=== PATIENT | female | born 1975 | race Caucasian/White ===

== ENCOUNTER → 2017-10-31 | Outpatient (CLI) | payer OTHER ==
[~2017-10-31] MED LIST: ACET325 PO; ALBU4 PO; ALBU90I INH; ALBU90OI INH; AMIT10; AZIT250 PO; Amoxicillin500 MG PO; BENZ100A PO; BUPR1 PO; BUTASPCAF PO; Bactrim Ds Tab1 EACH PO; CEPH500 PO; CITA20; CODACE30 PO; CYCL10 PO; DICL50ER; DILT120; DILT180; DIPH50 PO; DOCU100 PO; DOXY100 PO; ESOM20 PO; FAMO40 PO; HYDACE5; HYDACE5 PO; HYDACE5325; HYDGUAL120 PO; HYDR1TAB94 PO; IBUP600 PO; IBUP800 PO; IPRAOI INH; LASIX PO; LEVO750 PO; METO10; MULVITMINE; NAPR500 PO; NICO21TP TD; ONDA4 PO; OXYACE10 PO; OXYACE5T PO; PANT40 PO; PENVK500 PO; PRED10 PO; PROM25; PROM25 PO; PROP10; RIZA; RXOXYACE PO; RXTRAM50 PO; SOMA350 MG PO; SULTRIDS PO; SUMA25; TOPI100; TOPI25; TRAM50; TRAM50 PO; Verotin-Gr Cap1 EACH; ZOLM5; ZOMIG; [UNRECOGNIZED DRUG - OTHER]
== END ==
LOC: LAB SRC 13:16 → LAB SHORT 13:16
DX: R82.90 Unspecified abnormal findings in urine (principal)
CPT/HCPCS: 87077; 87086; 87186

== ENCOUNTER 2018-05-03 22:00 | Emergency (ER) | payer OTHER ==
[~2018-05-03] VITALS: Ht 167.6 cm; Wt 127.0 kg
[~2018-05-03 22:00] MED LIST changes: -Bactrim Ds Tab1 EACH PO
[2018-05-03 23:04] LABS: BASOPHILS ABSOLUTE AUTO 0.05 K/mm3 (0.00-0.23); BASOPHILS PERCENT AUTO 0 % (0-2); EOSINOPHILS ABSOLUTE AUTO 0.08 K/mm3 (0.00-0.68); EOSINOPHILS PERCENT AUTO 1 % (0-6); Hematocrit 45.8 % (33.0-51.0); Hemoglobin 15.9 g/dL (11.5-16.0); IMMATURE GRAN ABSOLUTE AUTO 0.05 K/mm3 (0.00-0.10); IMMATURE GRAN PERCENT AUTO 0 % (0-1); LYMPHOCYTES ABSOLUTE AUTO 2.51 K/mm3 (0.84-5.20); LYMPHOCYTES PERCENT AUTO 19 % (21-46); MONOCYTES ABSOLUTE AUTO 1.19 K/mm3 (0.16-1.47); MONOCYTES PERCENT AUTO 9 % (4-13); Mean Corpuscular HGB 30.9 pg (26.0-34.0); Mean Corpuscular HGB Conc 34.7 g/dL (31.5-36.5); Mean Corpuscular Volume 89 fL (80-100); NEUTROPHILS ABSOLUTE AUTO 9.36 K/mm3 (1.96-9.15); NEUTROPHILS PERCENT AUTO 71 % (41-73); RDW Coefficient Variation 12.5 % (11.7-14.2); RDW Standard Deviation 41.6 fL (35.1-46.3); Red Blood Cell Count 5.14 M/mm3 (3.80-5.20); White Blood Cell Count 13.24 K/mm3 (4.00-11.30)
[2018-05-03 23:10] LABS: Mean Platelet Volume 9.4 fL (9.1-12.4); Platelet Count 247 K/mm3 (150-400)
[2018-05-03 23:22] LABS: Alanine Aminotransfer (ALT/SGP 42 U/L (12-78); Albumin, Blood 3.5 g/dL (3.4-5.0); Albumin/Globulin Ratio 0.8 (0.8-1.8); Alk Phos 352 U/L (50-136); Anion Gap 8 mmol/L (6-16); Aspartate Aminotrans (AST/SGOT 33 U/L (12-37); Bilirubin, Total 0.3 mg/dL (0.1-1.0); Blood Urea Nitrogen 7 mg/dL (8-24); CO2, Blood 25 mmol/L (21-32); Calcium, Blood 8.6 mg/dL (8.5-10.1); Chloride, Blood 105 mmol/L (98-108); Creatinine, Blood 0.64 mg/dL (0.40-1.00); Globulin, Blood 4.2 g/dL (2.2-4.0); Glomerular Filtration Rate >60 (60-); Glucose, Blood 93 mg/dL (70-99); Potassium, Blood 4.2 mmol/L (3.5-5.5); Sodium, Blood 138 mmol/L (136-145); Total Protein, Blood 7.7 g/dL (6.4-8.2)
[2018-05-03] MEDS ORDERED: CEPH500 PO (23:24)
[2018-05-03] MEDS ORDERED: IBUP600 PO (23:24)
[2018-05-03] MEDS ORDERED: Bactrim Ds Tab1 EACH PO (23:24)
== END 2018-05-03 23:53 | disposition home or self-care (01) ==
LOC: ER 22:00
PROVIDERS: Emergency Medicine
DX: L03.113 Cellulitis of right upper limb (principal); F11.10 Opioid abuse, uncomplicated; F17.210 Nicotine dependence, cigarettes, uncomplicated; Z88.8 Allergy status to other drugs, medicaments and biological substances
CPT/HCPCS: 80053; 85025; 96374; 99283-25; J1885

== ENCOUNTER 2019-02-13 15:08 | Inpatient (IN) | payer OTHER ==
[~2019-02-13] VITALS: Ht 167.6 cm; Wt 112.0 kg
[~2019-02-13 15:08] MED LIST changes: +Bactrim Ds Tab1 EACH PO
[2019-02-13 16:08] LABS: BASOPHILS ABSOLUTE AUTO 0.06 K/mm3 (0.00-0.23); BASOPHILS PERCENT AUTO 0 % (0-2); EOSINOPHILS ABSOLUTE AUTO 0.19 K/mm3 (0.00-0.68); EOSINOPHILS PERCENT AUTO 1 % (0-6); Hematocrit 45.6 % (33.0-51.0); Hemoglobin 15.4 g/dL (11.5-16.0); IMMATURE GRAN ABSOLUTE AUTO 0.06 K/mm3 (0.00-0.10); IMMATURE GRAN PERCENT AUTO 0 % (0-1); LYMPHOCYTES ABSOLUTE AUTO 3.15 K/mm3 (0.84-5.20); LYMPHOCYTES PERCENT AUTO 20 % (21-46); MONOCYTES ABSOLUTE AUTO 1.92 K/mm3 (0.16-1.47); MONOCYTES PERCENT AUTO 12 % (4-13); Mean Corpuscular HGB Conc 33.8 g/dL (31.5-36.5); Mean Corpuscular Volume 92 fL (80-100); Mean Platelet Volume 9.1 fL (9.1-12.4); NEUTROPHILS ABSOLUTE AUTO 10.46 K/mm3 (1.96-9.15); NEUTROPHILS PERCENT AUTO 66 % (41-73); Platelet Count 327 K/mm3 (150-400); RDW Coefficient Variation 12.8 % (11.7-14.2); RDW Standard Deviation 43.5 fL (35.1-46.3); Red Blood Cell Count 4.97 M/mm3 (3.80-5.20); White Blood Cell Count 15.84 K/mm3 (4.00-11.30)
[2019-02-13 16:22] LABS: Alanine Aminotransfer (ALT/SGP 96 U/L (12-78); Albumin, Blood 3.1 g/dL (3.4-5.0); Albumin/Globulin Ratio 0.7 (0.8-1.8); Alk Phos 367 U/L (50-136); Anion Gap 7 mmol/L (6-16); Aspartate Aminotrans (AST/SGOT 64 U/L (12-37); Bilirubin, Total 0.7 mg/dL (0.1-1.0); Blood Urea Nitrogen 5 mg/dL (8-24); Bun/Creatinine Ratio 8.5 (12.0-20.0); CO2, Blood 27 mmol/L (21-32); Calcium, Blood 8.9 mg/dL (8.5-10.1); Chloride, Blood 103 mmol/L (98-108); Creatinine, Blood 0.59 mg/dL (0.40-1.00); Globulin, Blood 4.6 g/dL (2.2-4.0); Glomerular Filtration Rate >60 (60-); Glucose, Blood 83 mg/dL (70-99); Potassium, Blood 3.3 mmol/L (3.5-5.5); Sodium, Blood 137 mmol/L (136-145); Total Protein, Blood 7.7 g/dL (6.4-8.2)
--- NOTE | 2019-02-14 05:08 | NUR ---
PATIENT JUST TRIED TO GO OUTSIDE TO SMOKE, FOUND BY ELEVATOR READY TO GO DOWNSTAIRS, SHE IS VERY ANCIOUS AND JITTERY, WITHDRAWLING FROM HER HERION AND METH USE ON ADMISSION, SOON WE GOT BACK TO ROOM SHE TEXTED SOMEONE ON HER PHONE. INFORMED HER THAT WE CAN NOT HAVE HER GO OUTSIDE TO SMOKE THAT LONG THE IV ARE IN SHE CAN NOT LEAVE. SHE COOPERATED TO GO BACK TO THE ROOM.
[2019-02-14 05:30] LABS: BASOPHILS ABSOLUTE AUTO 0.03 K/mm3 (0.00-0.23); BASOPHILS PERCENT AUTO 0 % (0-2); EOSINOPHILS ABSOLUTE AUTO 0.08 K/mm3 (0.00-0.68); EOSINOPHILS PERCENT AUTO 1 % (0-6); Hemoglobin 12.7 g/dL (11.5-16.0); IMMATURE GRAN ABSOLUTE AUTO 0.06 K/mm3 (0.00-0.10); IMMATURE GRAN PERCENT AUTO 1 % (0-1); LYMPHOCYTES ABSOLUTE AUTO 2.69 K/mm3 (0.84-5.20); LYMPHOCYTES PERCENT AUTO 23 % (21-46); MONOCYTES ABSOLUTE AUTO 1.14 K/mm3 (0.16-1.47); MONOCYTES PERCENT AUTO 10 % (4-13); Mean Corpuscular HGB 31.1 pg (26.0-34.0); Mean Corpuscular HGB Conc 33.4 g/dL (31.5-36.5); Mean Corpuscular Volume 93 fL (80-100); Mean Platelet Volume 9.6 fL (9.1-12.4); NEUTROPHILS ABSOLUTE AUTO 7.89 K/mm3 (1.96-9.15); NEUTROPHILS PERCENT AUTO 66 % (41-73); Platelet Count 268 K/mm3 (150-400); RDW Coefficient Variation 12.6 % (11.7-14.2); RDW Standard Deviation 43.7 fL (35.1-46.3); Red Blood Cell Count 4.08 M/mm3 (3.80-5.20); White Blood Cell Count 11.89 K/mm3 (4.00-11.30)
[2019-02-14 05:36] LABS: International Normalized Ratio 1.01; Prothrombin Time Results 10.7 Sec (9.7-11.5)
[2019-02-14 05:48] LABS: Alanine Aminotransfer (ALT/SGP 65 U/L (12-78); Albumin, Blood 2.5 g/dL (3.4-5.0); Albumin/Globulin Ratio 0.7 (0.8-1.8); Alk Phos 260 U/L (50-136); Anion Gap 6 mmol/L (6-16); Aspartate Aminotrans (AST/SGOT 43 U/L (12-37); Bilirubin, Total 0.7 mg/dL (0.1-1.0); Blood Urea Nitrogen 4 mg/dL (8-24); Bun/Creatinine Ratio 8.3 (12.0-20.0); CO2, Blood 24 mmol/L (21-32); Calcium, Blood 7.6 mg/dL (8.5-10.1); Chloride, Blood 112 mmol/L (98-108); Creatinine, Blood 0.48 mg/dL (0.40-1.00); Globulin, Blood 3.8 g/dL (2.2-4.0); Glomerular Filtration Rate >60 (60-); Glucose, Blood 121 mg/dL (70-99); Magnesium, Blood 1.7 mg/dL (1.6-2.4); Potassium, Blood 3.6 mmol/L (3.5-5.5); Sodium, Blood 142 mmol/L (136-145); Total Protein, Blood 6.3 g/dL (6.4-8.2)
--- NOTE | 2019-02-14 06:43 | NUR ---
SHIFT SUMMARY: PATIENT ARRIVED TO THE FLOOR FROM ER VIA WC. TRANSFERRED SELF TO BED. SHE WAS VERY ANXIOUS, BUT AOX3, FLAT EFFECT, AND WITHDRAWN. THEY STATE THAT SHE ACTED EMBARRED DOWN IN THE ER. PATIENT ADMITTED TO DAILY IV HERION USE UP TO 4-5 TIMES A DAY, AND METH USE FOR SUBSITUTE. LAST TIME USED WAS RIGHT BEFORE COMMING TO THE HOSPTIAL. SHE CAME IN DO TO WORSENING ABSCESS TO THE BILATERAL HANDS AND LEFT AC AREA. BILATERAL HANDS ARE SWOLLEN WITH CELLULITIS THE RIGHT HAS A TRACK TO THE SURFACE AND IS DRAINING, MILD SEROUS SANGUOUS. THE LEFT HAS NOT OPEN OF YET, THE LEFT AC HAS OPENED AND HAS A DEEP WHOLE AND DRAINING, SHE REFUSED TO HAVE THEM COVERED OR MEASURED THEY DID IT IN THE ER. SHE HAS DENIED PAIN BUT HAS SHOWN SIGNS OF WITHDRAWL WITH IN HOURS OF BEING HERE. SHE IS VERY ANXIOUS UP AND DOWN IN HER ROOM PACING THE FLOOR AND CONSTANTLY MOVING AROUND STATING THAT SHE FEELS SHE WILL LOSE IT, ATIVAN HAS BEEN GIVEN AFTER A CALL TO THE DOCTOR AND IT CHANGED TO EVERY 3 HOURS. SHE WAS FOUND LATER TRYING TO GO OUTSIDE TO SMOKE DISPITE THE NICOTINE PATCH SHE HAS ON. INFORMED HER SHE IS NOT TO LEAVE TILL WHILE THE IV IS IN PLACE. SHE WAS NOT HAPPY ABOUT THAT. ENCOURAGED HER TO TRY TO REST BUT SHE HAS NOT. SHE DID HAVE A VISIT FROM HER DAUGHTER AND SON, WHICH SON WAS YOUNG 5 YEARS OLD. THIS DID NOT HELP HER WANTING TO GO HOME. SO FAR SHE HAS REMAINED CALM AND HAS NOT ESCALATED TO BEHAVIORAL ISSUES. DR. RODRÍGUEZ WAS CONSULTED FOR POSSIBLE I&D. NO OTHER CHANGES HAVE OCCURED, WILL REPORT TO DAY SHIFT RN.
--- NOTE | 2019-02-14 18:15 | NUR ---
PT AOX3 WITH A LOT OF ANXIETY AND NERVOUSNESS RELATED TO DETOXING FROM DRUGS. PT IS TREATED WITH ATIVAN FOR ANXIETY. PT PACES IN ROOM AND IS DISCOURAGED TO LEAVE THE ROOM FOR SMOKING OUTSIDE. NICOTINE PATCH IN PLACE. PT HAS PAIN IN HER HANDS WITH BILATERAL CELLULITIS AND IS TREATED PER EMAR. PT IS AGITATED OFF AND ON, BUT SO FAR IS REDIRECTABLE. WILL CONTINUE TO MONITOR.
[2019-02-14 22:09] LABS: Vancomycin, Trough 8.3 ug/mL (5.0-10.0)
[2019-02-15 05:46] LABS: BASOPHILS ABSOLUTE AUTO 0.04 K/mm3 (0.00-0.23); BASOPHILS PERCENT AUTO 0 % (0-2); EOSINOPHILS ABSOLUTE AUTO 0.06 K/mm3 (0.00-0.68); EOSINOPHILS PERCENT AUTO 1 % (0-6); Hematocrit 41.4 % (33.0-51.0); Hemoglobin 13.8 g/dL (11.5-16.0); IMMATURE GRAN ABSOLUTE AUTO 0.04 K/mm3 (0.00-0.10); IMMATURE GRAN PERCENT AUTO 0 % (0-1); LYMPHOCYTES ABSOLUTE AUTO 2.63 K/mm3 (0.84-5.20); LYMPHOCYTES PERCENT AUTO 29 % (21-46); MONOCYTES ABSOLUTE AUTO 1.15 K/mm3 (0.16-1.47); MONOCYTES PERCENT AUTO 13 % (4-13); Mean Corpuscular HGB 30.5 pg (26.0-34.0); Mean Corpuscular HGB Conc 33.3 g/dL (31.5-36.5); Mean Corpuscular Volume 92 fL (80-100); Mean Platelet Volume 9.4 fL (9.1-12.4); NEUTROPHILS ABSOLUTE AUTO 5.19 K/mm3 (1.96-9.15); NEUTROPHILS PERCENT AUTO 57 % (41-73); Platelet Count 276 K/mm3 (150-400); RDW Coefficient Variation 12.5 % (11.7-14.2); RDW Standard Deviation 42.1 fL (35.1-46.3); Red Blood Cell Count 4.52 M/mm3 (3.80-5.20); White Blood Cell Count 9.11 K/mm3 (4.00-11.30)
[2019-02-15 06:07] LABS: Anion Gap 5 mmol/L (6-16); Blood Urea Nitrogen 6 mg/dL (8-24); CO2, Blood 24 mmol/L (21-32); Calcium, Blood 8.7 mg/dL (8.5-10.1); Chloride, Blood 112 mmol/L (98-108); Creatinine, Blood 0.55 mg/dL (0.40-1.00); Glomerular Filtration Rate >60 (60-); Glucose, Blood 101 mg/dL (70-99); Magnesium, Blood 2.1 mg/dL (1.6-2.4); Sodium, Blood 141 mmol/L (136-145)
--- NOTE | 2019-02-15 06:28 | NUR ---
SHIFT SUMMARY PT VERY FLAT AFFECT DOESN'T SEEM TO RESPOND TO QUESTIONS, KIND OF A CONSTANT BLANK STARE. NPO SINCE MIDNIGHT. SHE TENDS TO WANDER HALLS WITH GOWN OPEN IN BACK C BLANK STARE. REDIRECTED TO ROOM X3. SHE LAYED IN BED AND DOZED ON AND OFF, TOSSING IN BED ON AND OFF T/O NIGHT.
--- NOTE | 2019-02-15 09:41 | NUR ---
Ambulatory in ROOM, FLAT AFFECT, MINIMAL VERBAL, STANDS, TRANSFERS TO [facility], DENIES NEED TO VOID WHEN OFFERED, DECLINES. SIGNS BLOOD CONSENT. History, Chart, Medications and Allergies reviewed before start of procedure.Lungs clear T/O to Auscultation. Patient confirms NPO status and agrees with scheduled surgery. Pre-Op teaching done. Pt verbalizes understanding.
--- NOTE | 2019-02-15 13:05 | NUR ---
PT IS ANSWERING AND TALKING WITH RN. STATES THAT 25MCG IV FENT DID NOT "DO MUCH" TO PAIN. PT NOW ASKING TO SOMETHING TO DRINK AND WANTS TO GO BACK TO ROOM. REPORT WAS GIVEN TO KATHYA BERKOWITZ. PT IS STABLE AT THIS TIME TO BE TRANSFERED TO MEDICAL FLOOR.
--- NOTE | 2019-02-15 16:54 | NUR ---
PT IS AOX3 VERY FLAT AFFECT. PT IS STILL WITHDRAWING FROM HER DRUG USE. PT WAS OUT MOST OF THE DAY FOR IND TO HER L ELBOW AND BOTH HANDS. WOUND VAC ON L ELBOW IS RUNNING WELL AT THIS TIME AND HAND BANDAGES ARE CLEAN. PT TREATED FOR PAIN PER EMAR. PT IS A ONE PERSON RENAE AT THIS TIME SHE RECOVERS FROM SEDATATION AND GETS HELP WITH WOUND VAC AND IV LINES. VITALS ARE STABLE WILL CONTINUE TO MONITOR. PT DOES NOT USE CALL LIGHT. BED ALARM IN PLACE.
[2019-02-15 17:06] LABS: Source, Urine Clean Catch
[2019-02-15 17:08] LABS: Bilirubin, Urine Neg (Neg); Blood, Urine 3+ (Neg); Glucose Qualitative, Urine Neg (Neg); Ketones, Urine Neg (Neg); Leukocyte Esterase, Urine Neg (Neg); Nitrite, Urine Neg (Neg); Protein, Urine Neg (Neg); Urobilinogen, Urine NORM (Normal); pH, Urine 6.5 (5.0-8.0)
[2019-02-15 17:19] LABS: Appearance, Urine Clear (Clear); Color, Urine Pale Yellow (P-Yellow)
[2019-02-15 17:20] LABS: Red Blood Cells, Urine 0-2 /hpf (0-2); Squamous Epithelial Cells Few /hpf (Few); White Blood Cells, Urine 0-2 /hpf (0-5)
[2019-02-15 17:21] LABS: Bacteria Not Seen /hpf
[2019-02-16 00:06] LABS: HBSAG SCREEN Negative (Negative); HEP A AB, IGM Negative (Negative); HEP B CORE AB, IGM Negative (Negative); HEP B CORE AB, TOT Negative (Negative); HEP C VIRUS AB >11.0 (0.0-0.9)
[2019-02-16 04:59] LABS: Vancomycin, Trough 14.6 ug/mL (5.0-10.0)
--- NOTE | 2019-02-16 06:37 | NUR ---
SHIFT SUMMARY PT VERY IRRITABLE FLAT AFFECT DOESN'T LIKE TO RESPOND. C/O PAIN AND MEDICATED PER EMAR FOR PAIN AND ANXIETY. VERY IRRITABLE ABOUT THE IV AND PUMP GOING OFF MULTIPLE TIMES. WOUND VAC TO L ELBOW DRAINING ABOUT 50 OF DARK RED BLOOD. IV GOT PULLED OUT FROM L SIDE OF NECK AND SHE WON'T LET US TOUCH R FOOT IV SINCE SHE SAYS IT HURTS TOO MUCH. IV SITE LOST AND SHE REFUSED ANOTHER IV AT THE MOMENT. WCTM. PASS ON TO DAY RN.
--- NOTE | 2019-02-16 12:04 | NUR ---
DRESSING CHANGE INDIRA CARMONA CAME AND CHANGED BOTH HAND DRESSINGS, BILAT HANDS PACKED WITH IODOFORM PACKING AND COVERED WITH GAUZE 4X4'S, GAUZE ROLL, AND YIFAN WRAP, PT CRIED OUT AND SWORE DURING DRESSING CHANGES, EXPLAINED TO THE PT THE IMPORTANCE OF DRESSING CHANGES, AND IV ANTIBIOTICS
--- NOTE | 2019-02-16 17:13 | NUR ---
SUMMARY PT RESTING QUIETLY IN BED, HAS BEEN MED PER EMAR FOR PAIN AND ANXIETY, PT HAS BEEN INDEPENDENT IN THE ROOM, PT HAS HAD FAMILY IN TO VISIT, PT HAS BEEN OUT OF THE ROOM TO GO FOR A WALK, WOUND VAC REMAINS INTACT, VSS, NO ACUTE CHANGES, WILL CONT TO MONITOR
--- NOTE | 2019-02-17 06:22 | NUR ---
SUMMARY: A/OX3, INDEPENDENT TO BSC AND SPECIFIES NEEDS. SHE'S BEEN VERY TIRED THIS SHIFT AND SLEPT MAJORITY OF NOCTE. SHE AWOKE BRIEFLY TO ANSWER Q'S SUCCINTLY THEN FELL BACK TO SLEEP. SHE'S BEEN FLAT AND WITHDRAWN W/MINIMAL INTERACTION. PT WAS MEDICATED X1 W/NORCO FOR TOLERABLE CONTROL OF L.ELBOW PAIN. WOUND VAC DX AND SUCTION REMAINS C/D/I TO L.ELBOW, VAC TO BE CHANGED TODAY. BILAT HAND DX'S W/YIFAN WRAP ARE ALSO C/D/I AND NOTED TO BE SWOLLEN/PINK. NS INFUSES AT TKO AND IV ABX WERE RECIEVED. NO ACUTE CHANGES, VSS/AFEBRILE. WCTM AND REPORT TO DAY RN.
--- NOTE | 2019-02-17 16:54 | NUR ---
SUMMARY PT RESTING QUIETLY IN BED, PT WAKES EASILY, PT HAS HAD BOTH HAND DRESSINGS CHANGED AND THE WOUND VAC DRESSING CHANGED TODAY BY DR JONES AND Ishan CARMONA, PAIN MEDS INCREASED TO Q4HP, FOR INCREASED PAIN, PT HAS HAD FAMILY COME IN TO VISIT AND PT HAS BEEN UP TO WALK, VSS, NO ACUTE CHANGES, WILL CONT TO MONITOR
--- NOTE | 2019-02-18 05:47 | NUR ---
SUMMARY: A/OX4, INDEPENDENT AND SPECIFIES NEEDS. PT WENT OUTSIDE TO SMOKE AND HER CHILDREN WERE HERE TO VISIT THIS SHIFT. BILAT HAND DX'S W/YIFAN WRAP REMAIN C/D/I. L.AC WOUND VAC AND SUCTION ARE ALSO INTACT W/ALL DX'S CHANGED ON 02/17/19 DAY SHIFT. A NEW IV WAS PLACED W/US ASSIST BY [employer] (MANOLO Anthony) D/T PREVIOUS INFILTRATING AND DIFFICULT IV START. NS AT TKO AND IV ABX WERE RECIEVED. PT USED BSC INDEPENDENTLY BUT HAD 1 EPISODE INCONTINENCE WHILE ASLEEP. NORCO WAS RECIEVED FOR TOLERABLE PAIN CONTROL AND ATIVAN WASN'T REQ'D THIS SHIFT. NO ACUTE CHANGES, VSS/AFEBRILE. WCTM AND REPORT TO DAY RN.
[2019-02-18 08:02] LABS: Creatinine, Blood 0.55 mg/dL (0.40-1.00)
[2019-02-18 08:07] LABS: Vancomycin, Trough 27.8 ug/mL (5.0-10.0)
--- NOTE | 2019-02-18 17:05 | NUR ---
PT AO TODAY AND COOPERATIVE OF ALL CARE. PT DOES REQUEST TO GO OUTSIDE AND HAS SOME ANXIETY WHICH WAS TREATED PER EMAR. PT WAS ALSO TREATED FOR PAIN IN HANDS AND L ELBOW PER EMAR. PT DOING MUCH BETTER AND IS ABLE TO CARRY ON AND CONVERSATION MUCH BETTER THAN WHEN SHE FIRST ARRIVED. WOUND VAC RUNNING WELL AND WILL CONTINUE TO MONITOR.
--- NOTE | 2019-02-19 04:37 | NUR ---
SHIFT SUMMARY: 44 Y/O OBESE FEMALE RESTED COMFORTABLY ALL SHIFT. PTS IS ALERT AND ORIENTED X 4, FLIGHT OF IDEAS AT TIMES NOTED WITH THOUGHT PROCESS DISORGANIZED. PTS DRESSING TO BILATERAL HANDS AND WOUND VAC TO LEFT ELBOW INTACT. PTS DAUGHTER WAS AT SIDE LAST NIGHT VISITING. PT WENT OUTSIDE TWICE LAST NIGHT TO SMOKE CIGARETTES. PT DENIES PAIN OR NAUSEA, BED LOW POSITION, CALL LIGHT AT SIDE.
--- NOTE | 2019-02-19 17:25 | NUR ---
PT AOX4 AND COOPERATIVE OF CARE. PT HAD DR IN TODAY TO CHANGE ALL BANDAGES AND WOUND VAC. PT HAS BEEN WALKING OUTSIDE X3. PT TREATED FOR L ELBOW AND BILATERAL HAND PAIN PER EMAR. WILL CONTINUE TO MONITOR.
--- NOTE | 2019-02-19 21:32 | NUR ---
PATIENT BP 214/131 ANXIUOS AND IN PAIN. ATIVAN IV GIVEN AND PAIN MEDICATION PER EMAR. PATIENT OUT TO SMOKE. REASSESS: 154/75. PATIENT LESS ANXIOUS AND REPORTED REDUCED PAIN.
--- NOTE | 2019-02-20 04:21 | NUR ---
SHIFT SUMMARY PATIENT HAD NO ACUTE CHANGES OBSERVED THIS SHIFT. AXOX 3 AND INDEPENDENT OUTSIDE. PATIENT REPORTED ANXIETY AND PAIN AND RECEIVED NORCO AND ATIVAN IV PER EMAR. PATIENT ABLE TO RELAX AND REPORTED REDUCED PAIN. PIV REMAINS INTACT. IV ABX INFUSED. WOUND VAC LEFT ELBOW. TAKES MEDICATION WHOLE WITH WATER. CALL LIGHT IN REACH. BED IN LOWEST POSITION. WILL CONTINUE TO MONITOR UNTIL DAY SHIFT NURSE ASSUMES CARE.
--- NOTE | 2019-02-20 16:27 | NUR ---
SHIFT SUMMARY NO ACUTE CHANGES. PATIENT MEDICATED X2 FOR PAIN, DENIES NAUSEA AND SHORTNESS OF BREATH. PATIENT DISCHARGE PLANNED FOR TOMORROW. PATIENT WILL NEED HOME WOUND VAC APPLIED BEFORE DISCHARGE. PATIENT'S NEXT WOUND VAC CHANGES WILL BE IN THE WOUND CLINIC ON MONDAY AT NOON AND MONDAY AT 0730 AM. PATIENT'S SIGNIFICANT OTHER WILL NEED TO ATTEND APPOINTMENTS TO LEARN WOUND VAC APPLICATION. PATIENT UP INDEPENDENT IN THE ROOM AND GOES OUTSIDE TO SMOKE SEVERAL TIMES A DAY. CALL LIGHT IN REACH, WILL CONTINUE TO MONITOR.
--- NOTE | 2019-02-21 05:47 | NUR ---
SHIFT SUMMARY PT AWAKE MUCH OF SHIFT, SIGNIFICANT OTHER CAME LATE IN THE EVENING. PT SHOWERED TONIGHT. DRESSINGS ON BOTH HANDS CHANGED. PT AMBULATORY PER SELF IN [facility]. ALERT AND ORIENTED. PT MEDICATED FOR PAIN X1 THIS SHIFT. WOUND VAC TO SUCTION ON LEFT AC. NO ACUTE EVENTS NOTED DURING THE NIGHT, WILL CONTINUE TO MONITOR.
[2019-02-21] MEDS ORDERED: Norco 5-325 Ta1 EACH PO ×2 (09:26)
[2019-02-21] MEDS ORDERED: CLON.1 PO ×2 (09:26)
[2019-02-21] MEDS ORDERED: ALBU90OI INH ×2 (09:26)
[2019-02-21] MEDS ORDERED: NICO21TP TOP ×2 (09:27)
[2019-02-21] MEDS ORDERED: CEPH500 PO ×2 (10:55)
--- NOTE | 2019-02-21 11:25 | NUR ---
PATIENT DISCHARGE THE PATIENT WAS DISCHARGED HOMR WITH HER S/O, AFTER DISCHARGE INSTRUCTIONS WERE GIVEN TO THE PATIENT. THE PATIENT ACKNOWLEDED THE NEED FOR FOLLOW UP APPOINTMENTS AND PRESCRIPTION AND AGREED TO DO THEM. THE PATIENT LEFT THE HOSPIITAL WITHOUT CONCERN OR COMPLAINT.
== END 2019-02-21 11:19 | disposition home or self-care (01) | DRG 571 ==
LOC: ER 15:08 → MEDS 19:10 → ENPENDDIS 02-21 09:37 → MEDS 02-21 11:19
PROVIDERS: Internal Medicine; Nurse Practitioner Acute Care; Orthopaedic Surgery; Physician Assistant; ADMIT Hospitalist
PROC: 0LB80ZZ Excision of Left Hand Tendon, Open Approach (ICD-10-PCS; 2019-02-15)
PROC: 0HBGXZZ Excision of Left Hand Skin, External Approach (ICD-10-PCS; 2019-02-15)
PROC: 0HBFXZZ Excision of Right Hand Skin, External Approach (ICD-10-PCS; 2019-02-15)
PROC: 0JBH0ZZ Excision of Left Lower Arm Subcutaneous Tissue and Fascia, Open Approach (ICD-10-PCS; principal; 2019-02-15 10:00)
DX: L02.414 Cutaneous abscess of left upper limb (principal); L02.512 Cutaneous abscess of left hand; L02.511 Cutaneous abscess of right hand; B15.9 Hepatitis A without hepatic coma; F11.23 Opioid dependence with withdrawal; F19.20 Other psychoactive substance dependence, uncomplicated; L03.114 Cellulitis of left upper limb; L03.113 Cellulitis of right upper limb; B95.4 Other streptococcus as the cause of diseases classified elsewhere; F32.9 Major depressive disorder, single episode, unspecified; E66.01 Morbid (severe) obesity due to excess calories; F17.210 Nicotine dependence, cigarettes, uncomplicated; E87.6 Hypokalemia; Z68.38 Body mass index [BMI] 38.0-38.9, adult; B19.20 Unspecified viral hepatitis C without hepatic coma
CPT/HCPCS: 36415; 76882; 80048; 80053; 80074; 80202; 81001; 82565; 83605; 83735; 85025; 85610; 85651; 86140; 86317; 86704; 86708; 86803; 87040; 87070; 87075; 87147; 87205; 87340; 94760; 96374; 96375; 97161; 99284-25; A9270-GY; J0690; J1100; J1650; J1885; J2060; J2405; J2704; J2710; J3010; J3370; J3475; J7030; J7050; J7120

== ENCOUNTER 2019-02-22 12:20 | Day surgery (SDC) | payer OTHER ==
[~2019-02-22 12:20] MED LIST changes: +CLON.1 PO; +NICO21TP TOP; +Norco 5-325 Ta1 EACH PO
== END 2019-02-22 23:49 | disposition home or self-care (01) ==
LOC: WOUND 12:20
DX: L98.492 Non-pressure chronic ulcer of skin of other sites with fat layer exposed (principal); L98.495 Non-pressure chronic ulcer of skin of other sites with muscle involvement without evidence of necrosis; L02.512 Cutaneous abscess of left hand; L02.511 Cutaneous abscess of right hand; L03.114 Cellulitis of left upper limb; L03.113 Cellulitis of right upper limb; B95.4 Other streptococcus as the cause of diseases classified elsewhere; F11.20 Opioid dependence, uncomplicated; F17.210 Nicotine dependence, cigarettes, uncomplicated; J45.909 Unspecified asthma, uncomplicated; F32.9 Major depressive disorder, single episode, unspecified; F41.9 Anxiety disorder, unspecified; Z88.8 Allergy status to other drugs, medicaments and biological substances
CPT/HCPCS: G0463

== ENCOUNTER 2019-02-25 15:10 | Day surgery (SDC) | payer OTHER | END 2019-02-25 22:42 | disposition home or self-care (01) | LOC: WOUND 15:10 | DX: L98.495 Non-pressure chronic ulcer of skin of other sites with muscle involvement without evidence of necrosis (principal); F11.10 Opioid abuse, uncomplicated; J45.909 Unspecified asthma, uncomplicated; F41.9 Anxiety disorder, unspecified; F32.9 Major depressive disorder, single episode, unspecified; F17.200 Nicotine dependence, unspecified, uncomplicated ==

== ENCOUNTER 2019-02-28 00:16 | Day surgery (SDC) | payer OTHER | END 2019-02-28 22:50 | disposition home or self-care (01) | LOC: WOUND 00:16 | DX: L98.495 Non-pressure chronic ulcer of skin of other sites with muscle involvement without evidence of necrosis (principal); F11.10 Opioid abuse, uncomplicated; J45.909 Unspecified asthma, uncomplicated; F41.9 Anxiety disorder, unspecified; F32.9 Major depressive disorder, single episode, unspecified; F17.200 Nicotine dependence, unspecified, uncomplicated ==

== ENCOUNTER 2019-03-04 00:14 | Day surgery (SDC) | payer OTHER | END 2019-03-04 22:51 | disposition home or self-care (01) | LOC: WOUND 00:14 | DX: S61.401A Unspecified open wound of right hand, initial encounter (principal); S61.402A Unspecified open wound of left hand, initial encounter; S51.802A Unspecified open wound of left forearm, initial encounter; F11.10 Opioid abuse, uncomplicated | CPT/HCPCS: 87070; 87205 ==

== ENCOUNTER 2019-03-06 01:02 | Day surgery (SDC) | payer OTHER | END 2019-03-06 22:40 | disposition home or self-care (01) | LOC: WOUND 01:02 | DX: S61.401A Unspecified open wound of right hand, initial encounter (principal); S61.402A Unspecified open wound of left hand, initial encounter; S41.102A Unspecified open wound of left upper arm, initial encounter; F11.10 Opioid abuse, uncomplicated ==

== ENCOUNTER 2019-03-08 13:45 | Day surgery (SDC) | payer OTHER | END 2019-03-08 22:51 | disposition home or self-care (01) | LOC: WOUND 13:45 | DX: S61.401A Unspecified open wound of right hand, initial encounter (principal); S61.402A Unspecified open wound of left hand, initial encounter; F11.10 Opioid abuse, uncomplicated; J45.909 Unspecified asthma, uncomplicated; F41.9 Anxiety disorder, unspecified; F32.9 Major depressive disorder, single episode, unspecified; F17.200 Nicotine dependence, unspecified, uncomplicated ==

== ENCOUNTER 2019-03-11 15:28 | Day surgery (SDC) | payer OTHER | END 2019-03-11 22:58 | disposition home or self-care (01) | LOC: WOUND 15:28 | DX: S61.402D Unspecified open wound of left hand, subsequent encounter (principal); S61.401D Unspecified open wound of right hand, subsequent encounter; S41.102D Unspecified open wound of left upper arm, subsequent encounter; F11.10 Opioid abuse, uncomplicated; F41.9 Anxiety disorder, unspecified; F32.9 Major depressive disorder, single episode, unspecified; J45.909 Unspecified asthma, uncomplicated; F17.200 Nicotine dependence, unspecified, uncomplicated | CPT/HCPCS: G0463 ==

== ENCOUNTER 2019-03-13 00:28 | Day surgery (SDC) | payer OTHER | END 2019-03-13 22:36 | disposition home or self-care (01) | LOC: WOUND 00:28 | DX: T81.89XA Other complications of procedures, not elsewhere classified, initial encounter (principal); F11.10 Opioid abuse, uncomplicated; R21 Rash and other nonspecific skin eruption | CPT/HCPCS: G0463 ==

== ENCOUNTER 2022-07-12 00:55 | Inpatient (IN) | payer OTHER ==
[~2022-07-12] VITALS: Ht 167.6 cm; Wt 108.9 kg
[2022-07-12 01:38] LABS: Hematocrit 41.1 % (33.0-51.0); Hemoglobin 14.3 g/dL (11.5-16.0); Mean Corpuscular HGB 30.9 pg (26.0-34.0); Mean Corpuscular HGB Conc 34.8 g/dL (31.5-36.5); Mean Corpuscular Volume 89 fL (80-100); Mean Platelet Volume 9.9 fL (9.1-12.4); Platelet Count 126 K/mm3 (150-400); RDW Coefficient Variation 12.9 % (11.7-14.2); RDW Standard Deviation 42.2 fL (35.1-46.3); Red Blood Cell Count 4.63 M/mm3 (3.80-5.20); White Blood Cell Count 14.33 K/mm3 (4.00-11.30)
[2022-07-12 01:57] LABS: BAND PERCENT MAN 10 % (0-8); BASOPHILS PERCENT MAN 0 % (0-2); EOSINOPHILS PERCENT MAN 0 % (0-6); LYMPHOCYTES % ATYPICAL MANUAL 1 % (0-0); LYMPHOCYTES ABSOLUTE MAN 2.86 K/mm3 (0.84-5.20); LYMPHOCYTES PERCENT MAN 19 % (21-46); MONOCYTES PERCENT MAN 7 % (4-13); NEUTROPHILS ABSOLUTE MAN 10.46 K/mm3 (1.96-9.15); SEG NEUTROPHILS PERCENT MAN 63 % (41-73); TOTAL CELLS COUNTED 100
[2022-07-12 02:03] LABS: Albumin, Blood 2.6 g/dL (3.4-5.0); Albumin/Globulin Ratio 0.6 (0.8-1.8); Bilirubin, Total 0.7 mg/dL (0.1-1.0); Bun/Creatinine Ratio 20.3 (12.0-20.0); Calcium, Blood 8.5 mg/dL (8.5-10.1); Creatinine, Blood 0.84 mg/dL (0.40-1.00); Globulin, Blood 4.3 g/dL (2.2-4.0); Potassium, Blood 3.2 mmol/L (3.5-5.5); Total Protein, Blood 6.9 g/dL (6.4-8.2)
[2022-07-12 02:03] LABS: Influenza B, PCR NEGATIVE (NEGATIVE); Resp Syncytial Virus, PCR NEGATIVE (NEGATIVE); SARS-Cov-2 (COVID-19) PCR, MMC NEGATIVE (NEGATIVE)
[2022-07-12 02:04] LABS: Influenza A, PCR POSITIVE (NEGATIVE)
[2022-07-12 11:53] LABS: Bun/Creatinine Ratio 26.6 (12.0-20.0); Calcium, Blood 8.3 mg/dL (8.5-10.1); Creatinine, Blood 0.83 mg/dL (0.40-1.00); Potassium, Blood 3.5 mmol/L (3.5-5.5)
[2022-07-12] MEDS ORDERED: METH10 PO (14:48)
--- NOTE | 2022-07-12 17:34 | NUR ---
Patient admitted this shift for sepsis/pneumonia, plan is to give IV fluids & IV ABX. Patient is on room air, productive cough, lung sounds wheezing/fine crackles at bases. Vitals stable, afebrile. Patient takes methadone daily, confirmed Rx script with adapt, daily dose of 100mg ordered. Med rec completed. Patient consented to skin check by 2 RNs, skin WNL, except small wound noted on lower back, wound bed covered with yellow tissue. Positive for Influenza A, droplet precautions in place. Will continue plan of care.
--- NOTE | 2022-07-12 20:15 | NUR ---
PATIENT PRESENTS WITH DIAGNOSIS OF PNEUMONIA AND INFLUENZA. A&OX4. PATIENT EFFECTIVELY COMMUICATES NEEDS. COOPERATIVE AND PLEASANTLY INTERACTS WITH CARE STAFF. BED LOW AND LOCKED. CALL LIGHT WITHIN REACH. VSS. RR EVEN AND UNLABORED ON RA. RIGHT AC IV AND LUE POWERGLIDE PATENT AND WITHOUT SIGNS OF INFECTION. NO ACUTE CONCERNS AT THIS TIME. WILL CONTINUE TO CLOSELY MONITOR.
--- NOTE | 2022-07-13 03:54 | NUR ---
SHIFT SUMMARY THE PATIENT IS A 47 YEAR-OLD FEMALE WITH A DIAGNOSIS OF INFLUENZA A AND A LEFT-SIDED PLEURAL EFFUSION. A&OX4. PATIENT EFFECTIVELY COMMUNICATES NEEDS. CALL LIGHT WITHIN REACH. BED LOW AND LOCKED. PATIENT AMBULATES INDEPENDENTLY TO REST ROOM. LS DIMINISHED THROUGHOUT. RR EVEN AND UNLABORED ON RA. PATIENT DENIES SOB AND/OR CP. APAP ADMINISTERED PER EMAR FOR GENERALIZED PAIN. PATIENT OBSERVED TO BE SLEEPING COMFORTABLY THROUGHOUT THE NIGHT. NO ACUTE CHANGES THIS SHIFT. WILL CONTINUE TO CLOSELY MONITOR.
[2022-07-13 06:01] LABS: BASOPHILS ABSOLUTE AUTO 0.02 K/mm3 (0.00-0.23); BASOPHILS PERCENT AUTO 0 % (0-2); EOSINOPHILS ABSOLUTE AUTO 0.05 K/mm3 (0.00-0.68); EOSINOPHILS PERCENT AUTO 1 % (0-6); Hematocrit 38.1 % (33.0-51.0); Hemoglobin 13.1 g/dL (11.5-16.0); IMMATURE GRAN ABSOLUTE AUTO 0.03 K/mm3 (0.00-0.10); IMMATURE GRAN PERCENT AUTO 0 % (0-1); LYMPHOCYTES ABSOLUTE AUTO 3.79 K/mm3 (0.84-5.20); LYMPHOCYTES PERCENT AUTO 45 % (21-46); MONOCYTES ABSOLUTE AUTO 0.62 K/mm3 (0.16-1.47); MONOCYTES PERCENT AUTO 7 % (4-13); Mean Corpuscular HGB 30.8 pg (26.0-34.0); Mean Corpuscular HGB Conc 34.4 g/dL (31.5-36.5); Mean Corpuscular Volume 90 fL (80-100); Mean Platelet Volume 10.2 fL (9.1-12.4); NEUTROPHILS ABSOLUTE AUTO 3.84 K/mm3 (1.96-9.15); NEUTROPHILS PERCENT AUTO 46 % (41-73); Platelet Count 129 K/mm3 (150-400); RDW Coefficient Variation 12.8 % (11.7-14.2); RDW Standard Deviation 41.9 fL (35.1-46.3); Red Blood Cell Count 4.25 M/mm3 (3.80-5.20); White Blood Cell Count 8.35 K/mm3 (4.00-11.30)
[2022-07-13 06:37] LABS: Bun/Creatinine Ratio 25.8 (12.0-20.0); Calcium, Blood 8.3 mg/dL (8.5-10.1); Creatinine, Blood 0.66 mg/dL (0.40-1.00); Potassium, Blood 3.7 mmol/L (3.5-5.5)
[2022-07-13] MEDS ORDERED: CEFD300 PO (12:33)
[2022-07-13] MEDS ORDERED: GUAI600T33 PO (12:34)
[2022-07-13] MEDS ORDERED: COMBIVENT RESPIM4 G1 INH (12:36)
--- NOTE | 2022-07-13 15:11 | NUR ---
SHIFT SUMMARY PTN D/C TODAY. SWITCHED TO ORAL ANTIBIOTICS. CALL FROM RONAN Giron FOR 4-SECOND TELEMETRY HR IN HIGH 30'S, AFTERWARDS SUSTAINED HR 50'S. DIMISHED LUNG SOUNDS WITH WHEEZING NOTED IN UPPER LUNGS ON EXPIRATION. COUGH, NONPRODUCTIVE. PTN SLEPT DURING MORNING OF SHIFT, STATED REALLY DID NOT SLEEP GOOD HERE AND WILL MOST LIKELY GET BETTER SLEEP AT HOME. EDUCATED ON MOVVEMENT OF LUNGS. PERIPHERAL IV REMOVED FROM RIGHT ARM AND TELEMETRY BY [facility]OU[facility] CANO AND POWER GLIDE IN LEFT UPPER ARM REMOVED BY LAZARO BERKOWITZ. ISOLATION PRECAUTIONS FOR INFLUENZA IN PLACE. D/C PAPERWORK REVIEWED WITH PTN, MEDICATIONS FAXED TO PHARMACY. PTN TRANSPORTED BY [facility] TO EXIT.
== END 2022-07-13 14:23 | disposition home or self-care (01) | DRG 871 ==
LOC: ER 00:55 → MEDS 05:24 → ERHOLD 05:24 → MEDS 14:19
PROVIDERS: Family Medicine; Internal Medicine; Student in an Organized Health Care Education/Training Program; ADMIT Family Medicine
DX: A41.9 Sepsis, unspecified organism (principal); J10.00 Influenza due to other identified influenza virus with unspecified type of pneumonia; J44.0 Chronic obstructive pulmonary disease with (acute) lower respiratory infection; E87.6 Hypokalemia; F17.210 Nicotine dependence, cigarettes, uncomplicated; B18.2 Chronic viral hepatitis C; F11.10 Opioid abuse, uncomplicated; G43.909 Migraine, unspecified, not intractable, without status migrainosus; F19.10 Other psychoactive substance abuse, uncomplicated; Z20.822 Contact with and (suspected) exposure to COVID-19; Z88.8 Allergy status to other drugs, medicaments and biological substances; Z79.51 Long term (current) use of inhaled steroids; Z79.899 Other long term (current) drug therapy; Z79.891 Long term (current) use of opiate analgesic; Z79.2 Long term (current) use of antibiotics; Z90.49 Acquired absence of other specified parts of digestive tract; Z98.890 Other specified postprocedural states
CPT/HCPCS: 0241U; 36415; 71045; 71250; 80048; 80053; 83605; 84145; 84484; 85025; 93005; 93010; 94640; 94644; 94664; 94760; 97162; 97530; A9270; J0456; J0696; J1650; J1885; J7030; J7050; J7120

== ENCOUNTER 2022-10-13 08:36 | Emergency (ER) | payer OTHER ==
[~2022-10-13] VITALS: Ht 167.6 cm; Wt 108.9 kg
[~2022-10-13 08:36] MED LIST changes: +CEFD300 PO; +COMBIVENT RESPIM4 G1 INH; +GUAI600T33 PO; +METH10 PO
[2022-10-13] MEDS ORDERED: Prednisone20 MG PO (10:13)
== END 2022-10-13 10:35 | disposition home or self-care (01) ==
LOC: ER 08:36
DX: G51.0 Bell's palsy (principal); F17.210 Nicotine dependence, cigarettes, uncomplicated; Z88.8 Allergy status to other drugs, medicaments and biological substances; Z79.899 Other long term (current) drug therapy
CPT/HCPCS: 70450; 93005; 93010; J7512